=== PATIENT | male | born 1955 | race Two or more races ===

== ENCOUNTER → 2017-11-29 | Outpatient (CLI) | payer BC ==
[~2017-11-29] MED LIST: CYCL5TAB PO; DUTA0.5C PO; FINA5TAB PO; LISI-334 PO
--- NOTE | 2017-11-29 16:22 | KCIC ---
THYROID ULTRASOUND Clinical Indication: Dysphagia. Comparison: None. TECHNIQUE: Real-time ultrasound imaging of the thyroid gland is performed. Findings: The isthmus measures 2 mm and is homogeneous. The right thyroid lobe measures 4.6 x 1.9 x 1.8 cm. The left thyroid lobe measures 4.7 x 1.6 x 1.7 cm. The thyroid gland is homogeneous. There is no discrete nodule. Color Doppler interrogation demonstrates normal blood flow. IMPRESSION: Normal thyroid ultrasound. Electronically signed by: Maxime Goff MD (11/29/2017 4:18 PM) [facility]
== END | disposition home or self-care (01) ==
LOC: KCIC US 15:38
PROVIDERS: ATTEND Otolaryngology
DX: R13.10 Dysphagia, unspecified (principal)
CPT/HCPCS: 76536